=== PATIENT | female | born 2005 | race Two or more races ===

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

== ENCOUNTER → 2025-02-19 | Outpatient (CLI) | payer MEDICAID, SELFPAY ==
--- NOTE | 2025-02-19 09:00 | XR_ITS ---
Examination: MRI brain with intravenous contrast TECHNIQUE: Multiple axial sagittal coronal MR brain images post intravenous administration 14 cc gadolinium Date and time: February 19, 2025 1016 hours INDICATIONS: Headaches years FINDINGS: Ventricles are normal in size and configuration. No mass effect upon the ventricular system. No effacement cortical sulcal markings Bilateral mild mastoiditis No abnormal enhancing cerebellar or cerebral lesions IMPRESSION: Negative for acute hemorrhage mass effect or midline shift No abnormal enhancing cerebellar or cerebral lesions Mild bilateral mastoiditis
[2025-02-19 09:57] LABS: HCG Qualitative,Urine Negative
== END | disposition home or self-care (01) ==
PROVIDERS: PCP Physician Assistant; Referring Provider Physician Assistant; Visit Provider Physician Assistant
DX: G43.909 Migraine, unspecified, not intractable, without status migrainosus (principal); Z32.00 Encounter for pregnancy test, result unknown
CPT/HCPCS: 36415; 70552; 81025; 84703; A9579